=== PATIENT | male | born 1960 | race Caucasian/White ===

== ENCOUNTER 2020-03-15 11:26 | Outpatient (CLI) | payer OTHER, SELFPAY ==
--- NOTE | ~2020-03-15 | XR_ITS ---
EXAMINATION: XR lumbar spine 2-3V DATE: 03/15/2020 12:01 INDICATION: Lumbar radiculopathy TECHNIQUE: Anteroposterior and lateral views of the lumbar spine, and cone-down lateral view of the l umbosacral junction were obtained. COMPARISON: None. FINDINGS: There is no fracture, dislocation, or subluxation. The vertebral body heights are normal. T here is moderate loss of intervertebral disc space height at L4-5 and L5-S1. Small degenerative osteo phytes project from the anterior endplates of multiple vertebral bodies. Moderate osteoarthritis is n oted in the lower lumbar spine. There is calcified atherosclerosis of the aorta. IMPRESSION: 1. Moderate lumbar spondylosis without acute findings. Reviewed, dictated and finalized at location A.
== END 2020-03-15 11:27 | disposition home or self-care (01) ==
PROVIDERS: PCP Internal Medicine; Visit Provider Internal Medicine
DX: M54.16 Radiculopathy, lumbar region (principal)
CPT/HCPCS: 72100

== ENCOUNTER 2020-03-26 14:55 | Outpatient (RCR) | payer OTHER, SELFPAY ==
--- NOTE | 2020-04-19 11:36 | PTOPEVAL ---
Thank you for referring Jake Oviedo to [facility]. Please review, sign, date and return this plan of care [facility]. I agree with and certify that the following plan of care is medically necessary. Referring Physician Date Admitting Provider: Attending Provider: Neto Duran MD Referring Provider: *PT Outpatient Evaluation Start: 03/26/20 15:14 Freq: Status: Active Protocol: Document 03/26/20 15:14 J (Rec: 03/26/20 16:15 [place] [email or web address]) Therapy Assessment Status Assessment Status Assessment Status Evaluation Evaluation Information Problem Diagnosis low back pain Onset 03/21/20 Additional Evaluation Detail oswestry = 30% Subjective Information he reports majority of his Query Text:As Reported By Patient/ pain is in the R LE. he Family reports the pain is mostly in the calf and top of his foot. he reports he was on a steroid dose pack. he reports he was doing better, but reports he is flared up today from increased activity and lifting over the weekend. 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 he reports he is on his hands and knees most of the day. he reports he also goes up and down constantly. he reports he has been having pain for about a month and a half. 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 he reports the pain has gone from the hip to the lower leg in the past. he reports the pain comes and goes with different activities . Prior Level of Function Comments Additional Prior Level of Function patient reports no injury, but Comments gradual onset of pain in the R LE. Pain Assessment Timing of Pain Assessment Timing of Pain Assessment Assessment Pain Scale Pain Scale Used Numeric (1 - 10) Self Report Pain Assessment Right Lower Leg(s) Reported Pain Level 0 Pain Description Sharp,Stabbing Pain Radiation Right Leg Pain Frequency Acute,Intermittent Lowest Pain Intensity 0 Greatest Pain Intensity 9 Pain Aggravating Factors
--- NOTE | 2020-05-10 16:08 | PTOPEVAL ---
Thank you for referring Jake Oviedo to [facility]. Please review, sign, date and return this plan of care [facility]. I agree with and certify that the following plan of care is medically necessary. Referring Physician Date Admitting Provider: Attending Provider: Neto Duran MD Referring Provider: *PT Outpatient Evaluation Start: 03/26/20 15:14 Freq: Status: Active Protocol: Document 05/10/20 15:00 [facility] (Rec: 05/10/20 16:07 [facility] [email or web address]) Therapy Assessment Status Assessment Status Assessment Status Discharge Evaluation Information Problem Diagnosis lwo back pain Additional Evaluation Detail oswestry = 46% Subjective Information patient reports he feels Query Text:As Reported By Patient/ About the same this date. he Family reports he still has pain in the low back and down the R LE , especially with R single leg stance activities. he reports his pain has gotten slightly worse due to coming off a steroid dose pack when beginning therapy. Pain Assessment Timing of Pain Assessment Timing of Pain Assessment Assessment Pain Scale Pain Scale Used Numeric (1 - 10) Self Report Pain Assessment Right Lower Leg(s) Reported Pain Level 6 Lowest Pain Intensity 0 Greatest Pain Intensity 10 Pain Score Pain Score 6: Self Report Cervical and Lumbar ROM Lumbar ROM Lumbar Flexion Active Floor Query Text:Hands to: Lumbar Extension (0-40) 30 Query Text:Active in Degrees Lumbar Lateral Flexion Left (0-40) 40 Query Text:Active in Degrees Lateral Flexion 40 Query Text:Active Hands to: Cervical and Lumbar Muscle Testing Lumbar Strength Upper Abdominal Strength 4-Good- Lower Abdominal Strength 3+Fair+ Lower Extremity Muscle Strength Testing Hip Strength Right Hip Flexion Strength 4 Good Hip Extension Strength 4+ Good + Hip Abduction Strength 4+ Good + Knee Strength Right Knee Flexion Strength 5 Normal Knee Extension Strength 5 Normal Muscle Length Testing Muscle Length Testing Left Hamstring Length 5 Query Text:(90 - 90 Position) Right Hamstring Length 15 Query Text:(90 - 90 Position) Gait Assessment Gait Pattern Assessment Other Gait Observations antalgia favoring the R LE during R sls phase of ambulation. PT Clinical Summary Clinical Summary Protocol: PTEVCODE PT Clin
== END 2020-05-10 17:06 | disposition home or self-care (01) ==
LOC: CHSPT 14:55
PROVIDERS: PCP Internal Medicine; Visit Provider Internal Medicine
DX: M54.5 Low back pain (principal)
CPT/HCPCS: 97012; 97014; 97110; 97140; 97161; G0283

== ENCOUNTER 2020-04-17 16:12 | Outpatient (CLI) | payer OTHER, SELFPAY ==
--- NOTE | ~2020-04-17 | XR_ITS ---
EXAMINATION: XR hip RT 2V w AP pelvis INDICATION: Right hip pain TECHNIQUE: AP view of the pelvis and two views of the right hip are obtained. COMPARISON: None available FINDINGS: Bone alignment is normal. There is no fracture. There is mild hip osteoarthritis. A phlebol ith is noted in the left pelvis. Mild to moderate lumbar spondylosis is noted. IMPRESSION: 1. Mild osteoarthritis without acute findings. Reviewed, dictated and finalized at location A.
== END 2020-04-17 16:13 | disposition home or self-care (01) ==
LOC: CHSLAB 16:13
PROVIDERS: PCP Internal Medicine; Visit Provider Internal Medicine
DX: M25.551 Pain in right hip (principal)
CPT/HCPCS: 73502

== ENCOUNTER 2021-02-14 09:41 | Outpatient (CLI) | payer OTHER, SELFPAY ==
--- NOTE | 2021-02-14 10:40 | ECG_ITS ---
Measurements Intervals R[place]man Rate: 59 P: 40 DE: 159 QRS: 27 QRSD: 94 T: 30 QT: 378 QTc: 377 Interpretive Statements SINUS BRADYCARDIA BASELINE ARTIFACT- I, III, AVL, V3 BORDERLINE ECG Electronically Signed On 02-14-2021 11:02:34 CDT by Nav Cisneros D.O.
[2021-02-14 11:20] LABS: Basophils Percent Auto 0.6 % (0.2-1.2); Eosinophils Absolute Auto 0.5 K/mm3 (0-0.3); Eosinophils Percent Auto 6.7 % (0-4.4); Hematocrit 40.8 % (42.0-52.0); Hemoglobin 13.8 g/dL (14.0-18.0); Immature Granulocyte Absolute 0.01 K/mm3 (0.00-0.031); Immature Granulocyte Percent A 0.1 % (0-0.5); Lymphocytes Absolute Auto 2.08 K/mm3 (0.9-3.2); Lymphocytes Percent Auto 31.2 % (18.3-44.2); Mean Corpuscular HGB Conc 33.8 g/dl (32-36); Mean Corpuscular Hemoglobin 32.2 pg (26-34); Mean Corpuscular Volume 95.3 fl (80-100); Mean Platelet Volume 9.8 fl (7.4-10.4); Monocytes Absolute Auto 0.6 K/mm3 (0.1-0.6); Monocytes Percent Auto 8.4 % (2.6-8.5); Neutrophils Absolute Auto 3.5 K/mm3 (1.3-6.7); Platelet Count Result 258 k/mm3 (150-375); Red Blood Count 4.28 M/mm3 (4.6-6.20); Red Cell Distribution Width 11.9 % (11.5-14.5); White Blood Count 6.7 K/mm3 (4.5-10.0)
[2021-02-14 11:30] LABS: INR 0.9
[2021-02-14 11:31] LABS: Partial Thromboplastin Time 28.1 SECONDS (22.3-36.8)
[2021-02-14 13:09] LABS: Alanine Aminotransferase 24 U/L (4-50); Albumin Level 4.4 g/dL (3.5-5.1); Alkaline Phosphatase 54 U/L (38-126); Anion Gap 6 mmol/L (8-16); Aspartate Amino Transferase 31 U/L (17-59); Bilirubin,Total 0.3 mg/dL (0.2-1.3); Blood Urea Nitrogen 10 mg/dL (9-20); Calcium 9.6 mg/dL (8.4-10.2); Carbon Dioxide 31 mmol/L (22-30); Chloride 102 mmol/L (98-107); Estimated Glomerular Filt Rate > 60; Glucose 93 mg/dL (75-110); Sodium 139 mmol/L (137-145)
[2021-02-14 13:20] LABS: Potassium 4.1 mmol/L (3.4-5.0)
== END 2021-02-14 09:42 | disposition home or self-care (01) ==
LOC: ANHSURGERY 09:45
PROVIDERS: PCP Internal Medicine; Visit Provider Urology
DX: C61 Malignant neoplasm of prostate (principal); Z01.818 Encounter for other preprocedural examination
CPT/HCPCS: 36415; 80053; 85025; 85610; 85730; 87086; 93005

== ENCOUNTER → 2021-02-23 01:14 | Outpatient (CLI) | payer OTHER, SELFPAY ==
[2021-02-23 19:16] LABS: SARS-CoV-2 RNA PCR Negative
== END ==
PROVIDERS: PCP Internal Medicine; Visit Provider Urology
DX: Z01.812 Encounter for preprocedural laboratory examination (principal); Z20.822 Contact with and (suspected) exposure to COVID-19
CPT/HCPCS: C9803; U0003; U0005

== ENCOUNTER 2021-02-26 00:22 | Day surgery (SDC) | payer OTHER, SELFPAY ==
[2021-02-14 10:07] VITALS: BP 150/92; PULSE 64; RESP 20; TEMP 36.9; O2SAT 98; BMI 28.1
[2021-02-26] VITALS (15 sets, daily range): BP systolic 115–165; BP diastolic 54–100; PULSE 75–99; RESP 10–20; TEMP 36.1–37.7; O2SAT 93–100; BMI 27.2
[2021-02-26] MEDS: LACTATED RINGERS 1,000 ML 30 ML IV CONT ×2 (06:42→11:45)
--- NOTE | 2021-02-26 07:08 | WPDANESEPPF ---
Anes - Initial Pre Proc Eval Procedure: Operation Date: 02/26/21 07:30 Proposed Procedures p Robotic Assisted Nerve Sparing Prostatectomy WIth Possible Pelvic Lymph Node Dissection - Timothy Ward MD Date/Time: 02/26/21 07:08 Surgeon: Timothy Ward MD Pre Op Diagnosis: Prostate Cancer Patient Data Age: 60 Gender: M Height: 5 ft 10.5 in Weight: 90.3 kg Last Vital Signs Temp 36.9 C 02/14/21 10:07 Pulse 64 02/14/21 10:07 Resp 20 02/14/21 10:07 BP 150/92 H 02/14/21 10:07 Pulse Ox 98 02/14/21 10:07 Allergies Allergy/AdvReac Type Severity Reaction Status Date / Time No Known Allergies Allergy Verified 02/14/21 10:01 Home Medications Medication Instructions Recorded Confirmed Type aspirin [Aspir-Low] 81 mg PO QAM 02/14/21 02/14/21 History atorvastatin 20 mg PO QAM 02/14/21 02/14/21 History duloxetine 30 mg PO BID 02/14/21 02/14/21 History glucosamine-chondroitin [Osteo 2 tablet PO QAM 02/14/21 02/14/21 History Bi-Flex] omeprazole 20 mg PO QAM 02/14/21 02/14/21 History quinapril 20 mg PO QAM 02/14/21 02/14/21 History tamsulosin 0.4 mg PO HS 02/14/21 02/14/21 History Laboratory Tests 02/26/21 06:44 Blood Type Pending Antibody Screen Pending Patient hx anesthesia problems: none Family hx anesthesia problems: none PMFSH Past Medical History Medical History GERD (gastroesophageal reflux disease) Hyperlipidemia Hypertension Prostate CA Social History Social History Smoking packs per day: 1 Smoking cigarettes per day: 20.0 Years smoked: 20 Smoking pack-years: 20.00 Smoking status: Former smoker Tobacco type: cigarettes Second hand tobacco smoke exposure: Yes Smoking end date: 10/26/08 Alcohol intake: current Drinks per week: 18 Substance use: never Substance use type: does not use Living arrangements: with family Spiritual care concerns: No Anes - Eval Final PreProcedure Day of Procedure 02/26/21 07:08 Patient weight: overweight Heart: regular rate and rhythm Lungs: decreased breath sounds Airway: Mallampati scale class II Neurological: alert and oriented Last oral intake: >/= 8 hours ASA classification: III Emergent: no Anesthetic plan: proceed Anesthesia type and monitoring: general ETT and standard monitoring Informed Consent: The patient's anesthetic plan and its attendant risks and benefits were discussed with the patient/family/POA. Questions were solicited and answers provided to the satisfaction of the patient/family/POA.
--- NOTE | 2021-02-26 07:17 | WPDHPUPDATE1 ---
History and Physical Update Update Date/Time: 02/26/21 07:17 History and Physical has been reviewed, including an updated exam of the patient. There are NO changes in the patient's condition. Risks, benefits, and alternatives have been discussed and questions answered. Patient agrees to proceed with procedure.
[2021-02-26] MEDS: ceFAZolin 2 GM/D5W 50 ML 2 GM/50 ML BAG IVPB (07:38)
[2021-02-26] MEDS: BUPIVACAINE HCL 0.5% PF 30 ML VIAL INFILTRATE (08:44)
--- NOTE | 2021-02-26 11:32 | PM.PROC ---
Procedure Note - Detailed Date of procedure: 02/26/21 Pre-op diagnosis: Prostate Cancer Post-op diagnosis: same Procedure performed: Robotic assist nerve-sparing prostatectomy with left pelvic lymph node dissection Description of procedure: Patient is taken the operative suite and correctly identified. Once anesthesia was obtained was placed in low lying dorsal lithotomy position and prepped and draped usual sterile fashion. Eighteen Marshallese Rodriguez was placed in the bladder. Supraumbilical incision was then made. This was carried down to the rectus fascia. We did an open Brown introduction for the camera port. Other working ports were placed in their appropriate locations. The robot was docked after the patient was placed in steep Trendelenburg position. Posterior approach was then performed. Seminal vesicles were dissected out in their entirety. Facet were transected. The plane between the prostate and the rectum was developed. Bladder was taken down in a standard fashion. Dorsal venous complex was isolated after the space of Retzius was developed and the puboprostatic ligaments were transected. Anterior bladder neck was then opened. A bladder neck sparing procedure was performed. Patient was noted to have a median lobe which was dissected out in its entirety. Pedicles were clipped bilateral nerve-sparing was performed. Dorsal venous complex was transected. Urethra was then transected. Specimen was placed in Endo-Catch bag. Left pelvic lymph node dissection was then performed standard fashion. Boundaries being the obturator nerve, external iliac vein, Issac's ligament, and bifurcation of the vessels. Clips were placed proximally and distally. This was also placed in an Endo-Catch bag. A Cricket stitch was then performed. Surgicel was placed over the nerve bundles as well as the left obturator fossa. Bladder neck was then anastomosed to the urethra with good approximation mucosa using V lock suture in a running fashion. Eighteen Marshallese Rodriguez was then placed inflated with 10 cc of sterile water. 150 cc of normal saline was instructed into the bladder and this was all retrieved. Arturo drain was then placed through the 3rd arm port site. This was secured. Robot was undocked. Endo-Catch bag was brought out through the midline incision. Rectus fascia closed using 0 Vicryl running fashion. Subcuticular stitches were then placed. Patient tolerated procedure well without any complications taken recovery stable condition. Anesthesia: GETA Surgeon: Timothy Ward MD Estimated blood loss (mL): 50 Drains: Yes Packing: No Pathology: yes Complications: No immediate complications Condition: stable Disposition: PACU
[2021-02-26] MEDS: fentaNYL CITRATE INJ (*CRX) 100 MCG/2 ML VIAL 25 MCG IV PUSH ×6 (11:55→12:29)
[2021-02-26] MEDS: HYOSCYAMINE SULFATE 0.125 MG TABLET SUBLINGUAL (12:23)
--- NOTE | 2021-02-26 13:17 | ADMGEN ---
This patient, Jake Oviedo, was admitted to 2 Medical Room 260-. Patient/family oriented to hospital policies and general routines including ID bracelet, bed and alarms, visiting hours, pain management, procedures, bathroom and other care routines, personal items, smoking policy, room service/diet, and visiting hours. Information on how to activate the Rapid Response Team has been discussed. Patient/Family are encouraged to report perceived risks to care and to ask questions if they do not understand what they are told or what they should do.
[2021-02-26] MEDS: LACTATED RINGERS 1,000 ML 125 ML IV CONT ×2 (13:30→21:13)
[2021-02-26] MEDS: KETOROLAC 30 MG/ML VIAL (*BKC) IV PUSH (13:30)
[2021-02-26] MEDS: HYDROcodone/acetaminophen (*CRX) 5-325 MG TABLET 1 TAB PO ×2 (16:29→23:00)
[2021-02-27 00:36] VITALS: BP 127/73; PULSE 82; RESP 20; TEMP 36.8; O2SAT 94
[2021-02-27 05:16] LABS: Hematocrit 33.2 % (42.0-52.0); Hemoglobin 11.2 g/dL (14.0-18.0)
[2021-02-27 05:20] VITALS: BP 134/75; PULSE 70; RESP 20; TEMP 36.6; O2SAT 95
[2021-02-27 05:29] LABS: Potassium 3.7 mmol/L (3.4-5.0)
[2021-02-27] MEDS: LACTATED RINGERS 1,000 ML 125 ML IV CONT (05:35)
[2021-02-27 05:45] LABS: Anion Gap 1 mmol/L (8-16); Blood Urea Nitrogen 13 mg/dL (9-20); Calcium 8.7 mg/dL (8.4-10.2); Carbon Dioxide 32 mmol/L (22-30); Chloride 102 mmol/L (98-107); Estimated CRCL calculation 92 ml/min; Estimated Glomerular Filt Rate > 60; Glucose 107 mg/dL (75-110); Sodium 135 mmol/L (137-145)
--- NOTE | 2021-02-27 07:32 | WPDUROPN2 ---
Progress Note: A&P Assessment and Plan (1) Adenocarcinoma of prostate: Code(s): C61 - Malignant neoplasm of prostate Status: Acute Assessment and Plan: Doing well postoperative day 1. Increase activity. Will re-evaluate at lunchtime. Most likely discharged home today with Rodriguez catheter. Will make a decision on MISSY pending on the output. Follow-up in 1 week time with catheter cystogram. Subjective Subjective Date/Time Seen: 02/27/21 07:32 Post Op day: 1 (Robotic assisted nerve-sparing prostatectomy with left pelvic lymph node dissection) Principal diagnosis: adenocarcinoma prostate Interval history: Jake is doing well this morning. He is up in a chair without any significant complaints. Vital signs are stable. Review of Systems Review of Systems: All systems reviewed & are unremarkable except as noted in HPI and below Exam Const: General: cooperative and comfortable Chest: Chest palpation & inspection: normal inspection of the chest Resp: Effort & Inspection: normal respiratory effort Cardio: Rate: regular rate Rhythm: regular rhythm GI: GI Palp: Yes Soft to palpation Objective Data Vital Signs Vital Signs: Vital Signs - 24 hr 02/26/21 11:45 02/26/21 12:00 02/26/21 12:15 Temperature 36.6 C Pulse Rate 85 85 88 Respiratory Rate 15 10 L 10 L Blood Pressure 129/97 H 115/60 130/96 H Pulse Oximetry 100 100 100 02/26/21 12:30 02/26/21 12:45 02/26/21 13:00 Temperature Pulse Rate 82 84 89 Respiratory Rate 10 L 10 L 11 L Blood Pressure 122/81 142/87 H 121/76 Pulse Oximetry 94 93 95 02/26/21 13:15 02/26/21 13:30 02/26/21 14:00 Temperature 36.1 C L 36.2 C L 36.3 C L Pulse Rate 91 75 78 Respiratory Rate 18 18 20 Blood Pressure 145/87 H 142/87 H 130/80 Pulse Oximetry 99 99 96 02/26/21 15:00 02/26/21 18:50 02/26/21 20:17 Temperature 36.2 C L 36.2 C L 37.3 C Pulse Rate 88 99 98 Respiratory Rate 18 20 20 Blood Pressure 137/77 143/54 H 132/97 H Pulse Oximetry 96 96 96 02/26/21 22:59 02/27/21 00:36 02/27/21 05:20 Temperature 37.7 C H 36.8 C 36.6 C Pulse Rate 82 70 Respiratory Rate 20 20 Blood Pressure 132/76 127/73 134/75 Pulse Oximetry 94 95 Intake/Output Intake/Output: Intake & Output 02/24/21 02/25/21 02/26/21 02/27/21 23:59 23:59 23:59 23:59 Intake Total 2040 1800 Output Total 520 2100 Balance 1520 -300 Meds/Results Medications: Active Medications Generic Name Dose Route Start Last Admin Trade Name Freq PRN Reason Stop Dose Admin Hydrocodone Bitart/Acetaminophen 1 tab 02/26/21 11:35 02/26/21 23:00 Hydrocodone/Acetaminophen (*Crx) 5-325 Mg Tablet PO 1 tab Q6H PRN Administration Pain Rated 1-3 Hydrocodone Bitart/Acetaminophen 2 tab 02/26/21 11:35 Hydrocodone/Acetaminophen (*Crx) 5-325 Mg Tablet PO Q6H PRN Pain Rated 4-6 Hyoscyamine 0.125 mg 02/26/21 11:35 02/26/21 12:23 Hyoscyamine Sulfate 0.125 Mg Tablet SUBLINGUAL 0.125 mg Q4H PRN Administration Bladder Spasm Lactated Ringer's 1,000 mls @ 125 mls/hr 02/26/21 11:35 02/27/21 05:35 Lr - Lactated Ringers Iv IV CONT 125 mls/hr .Q8H RAFAEL Administration Ketorolac Tromethamine 30 mg 02/26/21 11:35 02/26/21 13:30 Ketorolac 30 Mg/Ml Vial (*Bkc) IV PUSH 02/27/21 11:36 30 mg Q6H PRN Administration Pain Rated 4-6 Levofloxacin 500 mg 02/27/21 09:00 Levofloxacin Tab 500 Mg Tablet PO DAILY RAFAEL Morphine Sulfate 1 mg 02/26/21 11:35 Morphine Sulfate (*Crx) 2 Mg/Ml Inj IV PUSH Q2H PRN Pain Rated 7-10 Naloxone HCl 0.1 mg 02/26/21 11:35 Naloxone Hcl 0.4 Mg/Ml Vial IV PUSH Q2M PRN Opiate Reversal Ondansetron HCl 4 mg 02/26/21 07:58 Ondansetron Inj 4 Mg/2 Ml Vial IV PUSH ONCE PRN Nausea Labs Labs: Laboratory Results - last 24 hr 02/26/21 02/27/21 02/27/21 06:44 05:08 05:08 Hgb 11.2 L Hct 33.2 L Sodium 135 L Potassium 3.7 Chloride
[2021-02-27] MEDS: HYDROcodone/acetaminophen (*CRX) 5-325 MG TABLET 1 TAB PO ×2 (08:22→13:45)
--- NOTE | 2021-02-27 09:31 | WPDANESPN ---
Anes - Prog Note Post-Op Date/Time: 02/27/21 09:31 Cardiovascular status: normal Respiratory status: normal Airway patency: baseline Mental status: baseline Post-Op hydration status: normal Vital Signs: Last Vital Signs Temp 36.6 C 02/27/21 05:20 Pulse 70 02/27/21 05:20 Resp 20 02/27/21 05:20 BP 134/75 02/27/21 05:20 Pulse Ox 95 02/27/21 05:20 Pain Score (VAS): 2/10 I/O: Intake & Output 02/26/21 02/27/21 02/27/21 23:59 07:59 15:59 Intake Total 1540 1800 Output Total 410 2100 10 Balance 1130 -300 -10 Laboratory Tests 02/27/21 05:08 02/27/21 05:08 02/27/21 02/27/21 05:08 05:08 Hgb 11.2 L Hct 33.2 L Sodium 135 L Potassium 3.7 Chloride 102 Carbon Dioxide 32 H Anion Gap 1 L BUN 13 Creatinine 0.80 Estim Creat Clear Calc 92 Estimated GFR > 60 Glucose 107 Calcium 8.7 Post-procedural complaints: none Patient Feedback: Patient satisfied with anesthetic care.
[2021-02-27 10:00] VITALS: BP 128/72; PULSE 74; RESP 16; TEMP 36.4; O2SAT 96
== END 2021-02-27 14:30 | disposition home or self-care (01) ==
LOC: ANHSURGERY 05:59 → ANH2MED 12:44
PROVIDERS: PCP Internal Medicine; Visit Provider Urology
PROC: 0VT04ZZ Resection of Prostate, Percutaneous Endoscopic Approach (ICD-10-PCS; CPT 55867; principal; 2021-02-26 07:30)
DX: C61 Malignant neoplasm of prostate (principal); I10 Essential (primary) hypertension; E78.5 Hyperlipidemia, unspecified; K21.9 Gastro-esophageal reflux disease without esophagitis; Z79.82 Long term (current) use of aspirin; Z87.891 Personal history of nicotine dependence
CPT/HCPCS: 55866; 38571; S2900; 36415; 80048; 80053; 85014; 85018; 85025; 85610; 85730; 86850; 86900; 86901; 87086; 88304; 88305; 88307; 88309; 93005; A9270; C9803; J0330; J0690; J1100; J1170; J1885; J2250; J2370; J2405; J2704; J2710; J3010; J7030; J7120; Q9968; U0003; U0005

== ENCOUNTER 2021-03-06 09:06 | Outpatient (CLI) | payer OTHER, SELFPAY ==
--- NOTE | ~2021-03-06 | XR_ITS ---
XR cystogram DATE: 03/06/2021 09:41 INDICATION: Prostate cancer TECHNIQUE: A tube washer image was obtained. Approximately a spot images were performed during instillation of up to 175 cc radiopaque contrast material within the urinary bladder by gravity through the exist ing Rodriguez catheter. The patient complained of being uncomfortable as heck at 175 cc bladder volume. Postvoid image was obtained. COMPARISON: None FINDINGS: There is mild mucosal trabeculation of the urinary bladder. No intraluminal bladder mass le agnes is identified. No extravasation of contrast material from the bladder lumen. No vesicoureteral r eflux. IMPRESSION: No significant abnormality Reviewed, dictated and finalized at Location A. Reviewed, dictated and finalized at location A. IMPRESSION: No significant abnormality
== END 2021-03-06 09:07 | disposition home or self-care (01) ==
PROVIDERS: PCP Internal Medicine; Visit Provider Urology
DX: C61 Malignant neoplasm of prostate (principal)
CPT/HCPCS: 51600; 74430; Q9967

== ENCOUNTER 2023-07-10 12:37 | Outpatient (CLI) | payer BC, SELFPAY ==
--- NOTE | ~2023-07-10 | CT_ITS ---
CT Scan of the Chest without Contrast: Clinical Indication: Lung cancer screening, personal history of nicotine dependence Technique: Contiguous sections were acquired throughout the chest without intravenous contrast. Dose reduction technique was used on this scan by utilizing automated exposure control and iterative recon struction technique. The dose-length product (DLP) was 133.08 mGy-cm. Findings: There is no evidence of any significant mediastinal, hilar or axillary lymphadenopathy. Coronary jocelyne ry calcifications are present. There is no evidence of pleural or pericardial effusion. 3 mm right upper lobe pulmonary nodule noted (axial image 40). Images through the upper abdomen reveal no abnormalities. Impression: Lung RADS 2: Benign appearance. 12 month follow-up screening CT advised. Reviewed, dictated and finalized at location . Impression: Lung RADS 2: Benign appearance. 12 month follow-up screening CT advised.
== END 2023-07-10 12:38 | disposition home or self-care (01) ==
LOC: CHSIMG 12:38
PROVIDERS: PCP Internal Medicine; Visit Provider Internal Medicine
DX: Z12.2 Encounter for screening for malignant neoplasm of respiratory organs (principal); Z87.891 Personal history of nicotine dependence
CPT/HCPCS: 71271

== ENCOUNTER 2023-09-02 02:54 | Day surgery (SDC) | payer BC, SELFPAY ==
[2023-08-31 08:28] VITALS: BMI 27.8
--- NOTE | 2023-08-31 08:33 | PC.NURSE ---
Report to the Outpatient Waiting Room, entrance under the green pavilion located off [facility], at time 0600 on date 09/02/23. Planned Procedure Time: 0730. Time changes happen often and if your time is changed the preop area will call you the afternoon before. - You and your visitor will be asked to self-screen and do not enter if you have any COVID symptoms. - A mask is optional within the hospital at this time. Patients may have clear liquids (water, carbonated beverages, clear teas, apple juice) until 3 hours prior to surgery with a maximum of 20 ounces. - No food from midnight until time of surgery Take the following medications with a SIP of water the morning of surgery: NONE DO NOT STOP ANY OF YOUR OTHER PRESCRIPTION MEDICATIONS PRIOR TO SURGERY ?EXCEPT THE FOLLOWING Medications to discontinue per physician: N/A Date to take last dose: N/A Please no make-up, nail amharic, hairspray, perfume, deodorant, or body powder the day of surgery. No jewelry (including any body piercings) or valuables the day of surgery, leave them at home. Please take a shower or bath the night before, or the morning of, surgery with an antibacterial soap. Wear comfortable, loose fitting clothing. - Jewelry must be removed prior to entering the operating room. Rings and piercings that are not removed may be cut off. - The hospital will not accept responsibility for valuables. - Please leave all valuables, including medications, at home the day of surgery. If you are going home after surgery, a licensed taxi cab driver must drive you home. - NO public transportation without another adult if you receive anesthesia. - We recommend that an adult stay with you for 24 hours following discharge. - We also recommend that you do not drive, make important decision, drink alcoholic beverages, or take any drugs that were not prescribed by your health care provider for at least 24 hours after your discharge time. Follow any additional instructions given to you from your surgeon. If you or anyone in your household have experienced Covid symptoms in the past week, please notify your surgeon or the nurse liaison at the phone number below for possible testing. Telephone instructions given to PT - [place] and asked if any additional questions and then verbalized understanding. Patient advised to call surgeon office or pre surgery nurse liaison [phone] if any additional questions.
--- NOTE | 2023-08-31 16:45 | PM.SD2 ---
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 He frequently notices a left inguinal bulge which can be uncomfortable or painful. He was seen in the office and found to have a left inguinal hernia. He is taken to surgery now for open left inguinal hernia repair with mesh. Patient has a history of robotic laparoscopic prostatectomy in February of [address] Ward. [facility] Past Medical History Medical History GERD (gastroesophageal reflux disease) Hyperlipidemia Hypertension Prostate CA Surgical History Surgical History History of prostatectomy Robotic prostatectomy February [address] Ward Family History Family History Other Cancer Heart disease Social History Social History Smoking packs per day: 1 Smoking cigarettes per day: 20.0 Years smoked: 35 Smoking pack-years: 35.00 Smoking status: Former smoker Tobacco type: cigarettes Second hand tobacco smoke exposure: Yes Smoking end date: 10/26/10 Alcohol intake: current Drinks per week: 12 Substance use: never Substance use type: does not use Living arrangements: with family Spiritual care concerns: No Same Day Admit/Disch: Med Pre-admit Medications Home Medications Medication Instructions Recorded Confirmed Type aspirin 81 mg tablet,delayed 81 mg PO QAM 02/14/21 08/31/23 History release atorvastatin 20 mg tablet 20 mg PO QAM 02/14/21 08/31/23 History omeprazole 20 mg tablet,delayed 20 mg PO QAM 02/14/21 08/31/23 History release amlodipine 5 mg tablet 5 mg PO HS 07/20/23 08/31/23 History tadalafil 20 mg tablet 20 mg PO DAILY PRN Erectile 07/20/23 08/31/23 History Dysfunction losartan 100 1 tablet PO DAILY 08/31/23 08/31/23 History mg-hydrochlorothiazide 25 mg tablet ibuprofen 600 mg tablet 600 mg PO Q6H PRN pain #14 tabs 09/02/23 Rx oxycodone-acetaminophen 5 mg-325 0.5 - 1 tablet PO Q6H PRN pain #10 09/02/23 Rx mg tablet tabs Review of Systems Review of Systems All systems reviewed & are unremarkable except as noted in HPI and below (HPI) Exam Const: General: comfortable, no acute distress, alert and awake HENMT: Head: normocephalic and atraumatic Mouth: Yes Normal oral and palatal mucosa present Eyes: Conjunctivae: conjunctivae normal Pupils: Equal, round and reactive pupils present EOM: EOMs intact bilaterally Neck: Neck: normal visual inspection, no lymphadenopathy and nontender Resp: Effort & Inspection: normal respiratory effort Auscultation: clear to auscultation bilaterally Cardio: Rate: regular rate Rhythm: regular rhythm Heart sounds: no gallops, no murmurs and no rubs GI: Inspection: non-distended GI Palp: Yes Soft to palpation, No Tenderness to palpation present (GI), No Hepatomegaly present and No Splenomegaly present : Male General Exam: Yes hernia (Reducible but easily palpable left inguinal hernia) and No tenderness Penis: Yes normal penis Scrotum: scrotum normal Testes: Testes normal Skin: Lesions: no lesions Rashes: no rashes Neuro: General: no focal motor deficits and CN's II-XI intact bilaterally Cranial nerves: Yes Equal, round and reactive pupils present, Yes Bilaterally intact EOM present, Yes facial symmetry and Yes Midline tongue present Speech: normal speech Motor exam (neuro): 5/5 motor strength present throughout and Motor abnormalities not present Extrem: General: no clubbing, cyanosis or edema and edema Psych: Affect: normal affect Thought process: Normal thought process present Insight: Good insight present (Psych) DS: Summary Time Spent with Patient Time attestation: Total time spent providing and/or coord
--- NOTE | 2023-09-01 14:55 | WPDANESEPPF ---
Anes - Initial Pre Proc Eval Procedure: Operation Date: 09/02/23 07:30 Proposed Procedures p Left Inguinal Hernia Repair with Mesh - Eddi Pedro MD Date/Time: 09/01/23 14:55 Surgeon: Eddi Pedro MD Pre Op Diagnosis: Lt Ing Hernia Patient Data Age: 63 Gender: M Height: 1.8 m Weight: 90.75 kg Allergies Allergy/AdvReac Type Severity Reaction Status Date / Time No Known Allergies Allergy Verified 08/31/23 08:25 Home Medications Medication Instructions Recorded Confirmed Type aspirin 81 mg tablet,delayed 81 mg PO QAM 02/14/21 08/31/23 History release atorvastatin 20 mg tablet 20 mg PO QAM 02/14/21 08/31/23 History omeprazole 20 mg tablet,delayed 20 mg PO QAM 02/14/21 08/31/23 History release amlodipine 5 mg tablet 5 mg PO HS 07/20/23 08/31/23 History tadalafil 20 mg tablet 20 mg PO DAILY PRN Erectile 07/20/23 08/31/23 History Dysfunction losartan 100 1 tablet PO DAILY 08/31/23 08/31/23 History mg-hydrochlorothiazide 25 mg tablet Patient hx anesthesia problems: none Family hx anesthesia problems: none Results Review: All pre-operative results and documents have been reviewed as part of the pre-operative evaluation. [facility] Past Medical History Medical History GERD (gastroesophageal reflux disease) Hyperlipidemia Hypertension Prostate CA Surgical History Surgical History History of prostatectomy Robotic prostatectomy February [address] Ward Family History Family History Other Cancer Heart disease Social History Social History Smoking packs per day: 1 Smoking cigarettes per day: 20.0 Years smoked: 35 Smoking pack-years: 35.00 Smoking status: Former smoker Tobacco type: cigarettes Second hand tobacco smoke exposure: Yes Smoking end date: 10/26/10 Alcohol intake: current Drinks per week: 12 Substance use: never Substance use type: does not use Living arrangements: with family Spiritual care concerns: No Anes - Eval Final PreProcedure Day of Procedure 09/01/23 14:55 Patient weight: normal Heart: regular rate and rhythm Lungs: clear to auscultation Airway: Mallampati scale class II Neurological: alert and oriented Last oral intake: >/= 8 hours ASA classification: III Emergent: no Anesthetic plan: proceed Anesthesia type and monitoring: general GIVS and standard monitoring Results Review: All pre-operative results and documents have been reviewed as part of the pre-operative evaluation. Informed Consent: The patient's anesthetic plan and its attendant risks and benefits were discussed with the patient/family/POA. Questions were solicited and answers provided to the satisfaction of the patient/family/POA.
[2023-09-02 06:05] VITALS: BMI 27.9
[2023-09-02] MEDS: LACTATED RINGERS 1,000 ML 30 ML IV CONT ×2 (06:35→08:58)
[2023-09-02 07:00] LABS: Anion Gap 5 mmol/L (8-16); Blood Urea Nitrogen 13 mg/dL (9-20); Calcium 9.5 mg/dL (8.4-10.2); Carbon Dioxide 27 mmol/L (22-30); Chloride 104 mmol/L (98-107); Estimated CRCL calculation 117 ml/min; Estimated Glomerular Filt Rate > 60; Glucose 107 mg/dL (65-110); Sodium 136 mmol/L (137-145)
--- NOTE | 2023-09-02 07:05 | WPDHPUPDATE1 ---
History and Physical Update Update Date/Time: 09/02/23 07:05 History and Physical has been reviewed, including an updated exam of the patient. There are NO changes in the patient's condition. Risks, benefits, and alternatives have been discussed and questions answered. Patient agrees to proceed with procedure.
[2023-09-02] MEDS: ACETAMINOPHEN 500 MG TABLET 1000 MG PO (07:11)
[2023-09-02] MEDS: KETOROLAC 15 MG/ML VIAL (*BKC) IV PUSH (07:11)
[2023-09-02] MEDS: ceFAZolin 2 GM/D5W 50 ML 2 GM/50 ML BAG IVPB (07:28)
--- NOTE | 2023-09-02 08:54 | P.OP_ITS ---
Procedure Note - Detailed Date of Procedure 09/02/23 Pre-op Diagnosis Lt Ing Hernia Post-op Diagnosis Same Procedure Performed Open repair left inguinal hernia with mesh Surgeon Eddi Pedro MD Examiner Rating Clerk Marzena FORDE Anesthesia MAC and Local Indications Patient noticed a bulge in the left groin. It comes and goes. It is occasionally uncomfortable or even painful. He was seen in the office and found to have a reducible left inguinal hernia. He also has a history of robotic prostatectomy for prostate cancer. He is taken to surgery now for open left inguinal hernia repair. Findings Patient had a large indirect hernia. No other significant findings were noted. Description of Procedure Patient was taken to surgery and placed in the supine position. Anesthesia was administered and the left groin and genitalia were prepped and draped. The proposed incision was marked on the skin. Local was infiltrated into the skin and the subcutaneous. Incision was made and then dissection was carried down through the subcutaneous, through Barbara's fascia and eventually to the external oblique aponeurosis. The aponeurosis was exposed both medially and laterally exposing the external ring as well. Additional local was infiltrated deep to the aponeurosis to anesthetize the area the spermatic cord and inguinal canal contents. The the aponeurosis was then opened laterally and extended medially through the external ring. Care was taken to avoid the ilioinguinal nerve which was left attached to the cord throughout the surgery. The medial and lateral leaves of the external oblique aponeurosis were carefully dissected free from the inguinal canal contents. I then elevated the cord medially and passed a [place] drain around the cord in this area. I then carefully divided cremasteric fibers and other attachments of the cord to the inguinal canal floor. The cord was now easily mobile. There was no evidence of a direct hernia. I then dissected in the anteromedial spermatic cord and found a large indirect hernia sac. The sac was carefully dissected free from the cord structures. It was then dissected back to a high dissection. The sac was then dunked into the retroperitoneum. A large PerFix Light plug was then placed in the defect. The plug was sutured to the transversalis fascia with interrupted 3-0 Vicryl suture to secure it in that position. The patch was then cut to the appropriate size and placed over the inguinal canal floor. The lateral leaves were passed beyond the cord. I then placed the 1st piece of Xaracoll over the mesh. The cord was then laid over the Xaracoll. The external oblique aponeurosis was then closed with interrupted 3-0 Vicryl sutures. The 2nd piece of Xaracoll was placed over the aponeurosis. Barbara's fascia was closed with interrupted 3-0 Vicryl suture. The last pieces Xaracoll was then placed in the subcutaneous. The skin was loosely approximated with subcuticular 4-0 Vicryl skin suture. Finally the skin was closed with a running 4-0 Monocryl skin suture. The wound was dressed with Exofin surgical adhesive. The patient was awakened and taken to outpatient surgery in good condition. Sponge and needle counts were correct x2. Implants Large PerFix Light plug and patch, Xaracoll Estimated Blood Loss -5 Pathology None sent Complications No immediate complications Condition Stable Disposition Same day [facility] Billing Surgery - Charge Forward: Surgery Billing (Open repair left inguinal hernia with mesh)
[2023-09-02 08:58] VITALS: BP 125/66; PULSE 78; RESP 16; O2SAT 99
[2023-09-02 09:20] VITALS: BP 140/79; PULSE 61; RESP 16; O2SAT 99
[2023-09-02 09:50] VITALS: BP 154/82; PULSE 56; RESP 14
[2023-09-02] MEDS: LIDO 1%/EPINEPHRINE 1:100,000 50 ML VIAL INFILTRATE (10:14)
[2023-09-02 10:20] VITALS: BP 167/88; PULSE 58; RESP 16
[2023-09-02 10:50] VITALS: BP 177/88; PULSE 60; RESP 16
== END 2023-09-02 10:58 | disposition home or self-care (01) ==
PROVIDERS: Anesthesiology; PCP Internal Medicine; Visit Provider Surgery
PROC: (CPT 49505; principal; 2023-09-02 07:30)
DX: K40.90 Unilateral inguinal hernia, without obstruction or gangrene, not specified as recurrent (principal); I10 Essential (primary) hypertension; E78.5 Hyperlipidemia, unspecified; K21.9 Gastro-esophageal reflux disease without esophagitis; Z85.46 Personal history of malignant neoplasm of prostate; Z90.79 Acquired absence of other genital organ(s); Z87.891 Personal history of nicotine dependence; Z79.82 Long term (current) use of aspirin
CPT/HCPCS: 49505; 36415; 80048; A9270; C1781; J0690; J1170; J1885; J2250; J2405; J2704; J3010; J7120

== ENCOUNTER 2025-10-11 11:34 | Outpatient (CLI) | payer OTHER, SELFPAY ==
--- NOTE | ~2025-10-11 | XR_ITS ---
EXAMINATION: XR shoulder RT min 2V, 10/11/2025 11:35 COVER MARKER HISTORY: R SHOULDER PAIN X 4 MOS COMPARISON: No comparisons available. Findings: No acute fracture or malalignment. No significant degenerative changes. Soft tissues unremarkable. Impression: No acute fracture or malalignment. Reviewed, dictated and finalized at location P. R MARKER Impression: No acute fracture or malalignment.
--- OUTSIDE RECORDS SUMMARY | 2025-10-11 13:53 | XMS_ITS | Clinical Summary ---
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 Gender Identity Not on file Sexual Orientation Not on file Plan of Treatment Health Maintenance Due Date Last Done Comments Colorectal Cancer Screening Colonoscopy (10 Years) 1962 Annual Physical 1965 Hepatitis C 1980 DTaP, Tdap and Td Vaccines ( 1 - Tdap) 1981 Pneumococcal Vaccine: 50+ Ye ars (1 of 1 - PCV) 2012 Zoster Vaccines (1 of 2) 2012 COVID-19 Vaccine (1 - 2024-2 6 season) 2025 Influenza Adult (#1) 2025 RSV Immunization or 60+ Years (1 - 1-dose 75+ series) 2037 Hepatitis A Vaccines Aged Out No long er eligible based on patient's age to complete this topic Meningococcal B Vaccine Aged Out No l onger eligible based on patient's age to complete this topic Meningococcal Vaccine Aged Out No ninfa camilo eligible based on patient's age to complete this topic RSV Immunizations Under 20 Months Aged Out No longer eligible based on patient's age to complete this topic
== END 2025-10-11 11:35 | disposition home or self-care (01) ==
LOC: CHSIMG 11:38
PROVIDERS: PCP Internal Medicine; Visit Provider Internal Medicine
DX: M25.511 Pain in right shoulder (principal)
CPT/HCPCS: 73030